=== PATIENT | male | born 1945 | race Caucasian/White ===

== ENCOUNTER → 2016-06-13 | Outpatient (CLI) | payer MEDICARE ==
[~2016-06-13] MED LIST: ASPIR-LOW81 MG PO; BETIMOL5 ML OS; COREG 25MG TAB25 MG PO; COUMADIN2.5 MG PO; COUMADIN5 MG PO; HYDRALAZINE HCL50 MG PO; IMDUR ER TAB 3030 MG PO; LANTUS100 UNIT/1 SQ; LASIX40 MG PO; LASIX80 MG PO; LEVOTHYROXINE100 MCG PO; LIPITOR TAB 2020 MG PO; NITROGLYCERIN0.4 MG SL; NORVASC 5 MG TAB5 MG PO; RENAL CAPS SOFTG1 MG PO; SPIRONOLACTONE25 MG PO; VALSARTAN40 MG PO
== END ==
LOC: LAB 12:20
DX: Z51.81 Encounter for therapeutic drug level monitoring (principal); Z86.73 Personal history of transient ischemic attack (TIA), and cerebral infarction without residual deficits; Z79.01 Long term (current) use of anticoagulants
CPT/HCPCS: 36415; 85610

== ENCOUNTER → 2016-07-12 | Outpatient (CLI) | payer MEDICARE | LOC: LAB 09:44 | DX: Z51.81 Encounter for therapeutic drug level monitoring (principal); Z86.73 Personal history of transient ischemic attack (TIA), and cerebral infarction without residual deficits; Z79.01 Long term (current) use of anticoagulants | CPT/HCPCS: 36415; 85610 ==

== ENCOUNTER → 2016-08-30 | Outpatient (CLI) | payer MEDICARE | LOC: LAB 10:38 | DX: Z51.81 Encounter for therapeutic drug level monitoring (principal); Z86.73 Personal history of transient ischemic attack (TIA), and cerebral infarction without residual deficits; Z79.01 Long term (current) use of anticoagulants | CPT/HCPCS: 36415; 85610 ==

== ENCOUNTER → 2016-09-08 | Outpatient (CLI) | payer MEDICARE | LOC: LAB 12:34 | DX: Z51.81 Encounter for therapeutic drug level monitoring (principal); Z86.73 Personal history of transient ischemic attack (TIA), and cerebral infarction without residual deficits; Z79.01 Long term (current) use of anticoagulants | CPT/HCPCS: 36415; 85610 ==

== ENCOUNTER 2020-03-29 13:00 | Inpatient (IN) | payer MEDICARE ==
[~2020-03-29] VITALS: Ht 177.8 cm; Wt 100.6 kg
[~2020-03-29 13:00] MED LIST changes: -BETIMOL5 ML OS; +CATAPRES 0.1MG0.1 MG PO; +COREG 12.5MG12.5 MG PO; +DORZOLAMIDE-TIM10 ML EYELF; +HYDRALAZINE HC100 MG PO; -HYDRALAZINE HCL50 MG PO; -IMDUR ER TAB 3030 MG PO; +IMDUR ER TAB 6060 MG PO; -LASIX80 MG PO; -LIPITOR TAB 2020 MG PO; +LIPITOR80 MG PO; +LOVENOX100 MG/1 M SQ; +MINIPRESS2 MG PO; -NITROGLYCERIN0.4 MG SL; +NITROSTAT0.3 MG SL; -NORVASC 5 MG TAB5 MG PO; +NORVASC10 MG PO; +NOVOLOG 10100 UNITS/ SC; +NOVOLOG 10100 UNITS/ SQ; +PLAVIX 75 MG TA75 MG PO; +RANEXA1000 MG PO; +TRAMADOL HCL50 MG PO; +TYLENOL 325MG325 MG PO; +VITAMIN D32000 UNI1 PO
[2020-03-29 14:42] LABS: HEMOGLOBIN 10.8 gm/dl (14.0-17.5); RED BLOOD COUNT 3.63 M/UL (4.20-5.50); WHITE BLOOD COUNT 10.5 K/UL (4.5-11.0)
[2020-03-29] MEDS ORDERED: WARFARIN SODIUM5 MG PO (19:16)
[2020-03-29] MEDS ORDERED: JANTOVEN2.5 MG PO (19:17)
[2020-03-29] MEDS ORDERED: COREG 12.5MG12.5 MG PO (19:18)
[2020-03-29] MEDS ORDERED: ACID REDUCER20 MG PO (19:20)
[2020-03-30 03:58] LABS: HEMOGLOBIN 9.4 gm/dl (14.0-17.5); WHITE BLOOD COUNT 8.7 K/UL (4.5-11.0)
[2020-03-30 04:00] LABS: RED BLOOD COUNT 3.12 M/UL (4.20-5.50)
[2020-04-01 02:35] LABS: HEMOGLOBIN 8.4 gm/dl (14.0-17.5); WHITE BLOOD COUNT 9.7 K/UL (4.5-11.0)
[2020-04-01 02:44] LABS: RED BLOOD COUNT 2.79 M/UL (4.20-5.50)
--- NOTE | 2020-04-01 13:28 | NUR ---
AT APPROX 1230 CALLS OUT HELP. CALLED OUT FOR HELP. BINDU AND KASIE ENTER ROOM AND CALL CODE. BRIANNA AND AAKASH INITIATE COMPRESSIONS. CODE TEAM ARRIVES, PATIENT IS HOOKED TO MD JAVY AT BEDSIDE CALLING OUT MEDICATION, RAVINDER RECORDING. AT 1235 PATIENT RECIEVING CPR. NO RYTHM ON THE MONITOR. AT 1239 CODE TEAM AT BEDSIDE. #1 EPI GIVEN IN IV IN THE LEFT AC AND FLUSHED, NO RYTHM ON THE MONITOR. AT 1240 ATROPINE GIVEN IN THE LEFT AC NO RYTHM ON THE MONITOR. DR BONILLA AVAILABLE TO INTUBATE, PRESENTLY BAGGING THE PATIENT. CPR CONTINUED, PER MD ORDER PAUSE CPR ANALYZING THE MONITOR THE PATIENTS HEART RYTHM IS PRESENTLY SINUS TACH. PATIENT IS AWAKE AND TALKING, EKG DONE AT 1245. PATIENT TO TRANSFER TO UNIT. ALERT AND ORIENTED, O2 AT 100% PER VENTI MASK.
--- NOTE | 2020-04-01 18:51 | NUR ---
PT STATED THAT PT HAS HAD HISTORY OF SEVERAL EPISDES OF EXTREME LETHERGY AND PERIODS OF "PASSING OUT" WHILE TAKING CLONIDINE AND WAS VERY CONCERNED WITH IT BEING ORDERED. DISCUSSED WITH DR SARAVIA, AND CLONIDINE WAS DC'D.
[2020-04-02 05:22] LABS: HEMOGLOBIN 8.1 gm/dl (14.0-17.5); RED BLOOD COUNT 2.78 M/UL (4.20-5.50); WHITE BLOOD COUNT 8.5 K/UL (4.5-11.0)
[2020-04-03 02:20] LABS: HEMOGLOBIN 8.7 gm/dl (14.0-17.5); RED BLOOD COUNT 2.88 M/UL (4.20-5.50); WHITE BLOOD COUNT 9.7 K/UL (4.5-11.0)
[2020-04-04 04:37] LABS: HEMOGLOBIN 8.7 gm/dl (14.0-17.5); RED BLOOD COUNT 2.87 M/UL (4.20-5.50); WHITE BLOOD COUNT 8.4 K/UL (4.5-11.0)
[2020-04-05 05:15] LABS: HEMOGLOBIN 8.5 gm/dl (14.0-17.5); RED BLOOD COUNT 2.83 M/UL (4.20-5.50); WHITE BLOOD COUNT 8.8 K/UL (4.5-11.0)
--- NOTE | 2020-04-05 14:08 | NUR ---
CONTACTED PHARMACY TO DISCUSS LOKELMA DOSAGE/FREQUENCY AND ADMINISTERING ON DIALYSIS DAYS; SPOKE TO NICOLE WHO CONTACTED DR PADILLA AND ORDER TO DC MED WAS OBTAINED
[2020-04-06 03:27] LABS: HEMOGLOBIN 7.4 gm/dl (14.0-17.5); WHITE BLOOD COUNT 8.1 K/UL (4.5-11.0)
[2020-04-06 03:50] LABS: RED BLOOD COUNT 2.48 M/UL (4.20-5.50)
[2020-04-06 08:09] LABS: HBSAG SCREEN Negative (Negative)
[2020-04-07 04:59] LABS: HEMOGLOBIN 8.9 gm/dl (14.0-17.5); WHITE BLOOD COUNT 8.4 K/UL (4.5-11.0)
[2020-04-09 08:53] LABS: HEMOGLOBIN 9.8 gm/dl (14.0-17.5)
[2020-04-09 08:55] LABS: RED BLOOD COUNT 3.31 M/UL (4.20-5.50); WHITE BLOOD COUNT 11.2 K/UL (4.5-11.0)
[2020-04-10 09:14] LABS: HBSAG SCREEN Negative (Negative); HEP A AB, IGM Negative (Negative); HEP B CORE AB, IGM Negative (Negative); HEP C VIRUS AB 0.1 (0.0-0.9)
[2020-04-11 05:03] LABS: HEMOGLOBIN 10.6 gm/dl (14.0-17.5); RED BLOOD COUNT 3.53 M/UL (4.20-5.50); WHITE BLOOD COUNT 13.3 K/UL (4.5-11.0)
[2020-04-13 05:41] LABS: HEMOGLOBIN 9.2 gm/dl (14.0-17.5); WHITE BLOOD COUNT 13.6 K/UL (4.5-11.0)
[2020-04-13 05:46] LABS: RED BLOOD COUNT 3.1 M/UL (4.20-5.50)
[2020-04-15 07:43] LABS: HEMOGLOBIN 9.8 gm/dl (14.0-17.5); RED BLOOD COUNT 3.32 M/UL (4.20-5.50)
[2020-04-15] MEDS ORDERED: CARVEDILOL3.125 MG PO (10:35)
[2020-04-15] MEDS ORDERED: LISINOPRIL10 MG PO (10:35)
[2020-04-15] MEDS ORDERED: SODIUM BICARBO650 M1 PO (10:35)
[2020-04-16 03:16] LABS: HEMOGLOBIN 9.2 gm/dl (14.0-17.5); RED BLOOD COUNT 3.14 M/UL (4.20-5.50); WHITE BLOOD COUNT 10.4 K/UL (4.5-11.0)
[2020-04-16] MEDS ORDERED: LOPRESSOR 25 MG25 MG PO (16:35)
[2020-04-16] MEDS ORDERED: METOPROLOL SUCC25 MG PO (17:35)
--- NOTE | 2020-04-16 18:59 | NUR ---
PATIENT ROOM AIR SAT IS 94%
== END 2020-04-16 19:15 | disposition home health service (06) | DRG 673 ==
LOC: ER1 13:00 → CCU 15:59 → CDU 15:59 → PROG CARE 15:59 → 2 EAST 04-01 13:21 → CCU 04-03 12:39 → PROG CARE 04-08 12:10
PROVIDERS: Family Medicine; Internal Medicine; Internal Medicine Infectious Disease; Internal Medicine Nephrology; Physician Assistant Medical; ADMIT Internal Medicine
PROC: 02HV33Z Insertion of Infusion Device into Superior Vena Cava, Percutaneous Approach (ICD-10-PCS; principal; 2020-04-04)
PROC: B548ZZA Ultrasonography of Superior Vena Cava, Guidance (ICD-10-PCS; 2020-04-04)
PROC: 5A1D70Z Performance of Urinary Filtration, Intermittent, Less than 6 Hours Per Day (ICD-10-PCS; 2020-04-04)
PROC: 5A1D70Z Performance of Urinary Filtration, Intermittent, Less than 6 Hours Per Day (ICD-10-PCS; 2020-04-05)
PROC: 5A1D70Z Performance of Urinary Filtration, Intermittent, Less than 6 Hours Per Day (ICD-10-PCS; 2020-04-06)
PROC: 30233N1 Transfusion of Nonautologous Red Blood Cells into Peripheral Vein, Percutaneous Approach (ICD-10-PCS; 2020-04-06)
PROC: 5A1D70Z Performance of Urinary Filtration, Intermittent, Less than 6 Hours Per Day (ICD-10-PCS; 2020-04-07)
PROC: 5A1D70Z Performance of Urinary Filtration, Intermittent, Less than 6 Hours Per Day (ICD-10-PCS; 2020-04-09)
PROC: 5A1D70Z Performance of Urinary Filtration, Intermittent, Less than 6 Hours Per Day (ICD-10-PCS; 2020-04-10)
PROC: B211YZZ Fluoroscopy of Multiple Coronary Arteries using Other Contrast (ICD-10-PCS; 2020-04-10)
PROC: 4A023N7 Measurement of Cardiac Sampling and Pressure, Left Heart, Percutaneous Approach (ICD-10-PCS; 2020-04-10)
PROC: B212YZZ Fluoroscopy of Single Coronary Artery Bypass Graft using Other Contrast (ICD-10-PCS; 2020-04-10)
PROC: 0JH63XZ Insertion of Tunneled Vascular Access Device into Chest Subcutaneous Tissue and Fascia, Percutaneous Approach (ICD-10-PCS; 2020-04-13)
PROC: 05HM33Z Insertion of Infusion Device into Right Internal Jugular Vein, Percutaneous Approach (ICD-10-PCS; 2020-04-13)
PROC: B513YZA Fluoroscopy of Right Jugular Veins using Other Contrast, Guidance (ICD-10-PCS; 2020-04-13)
PROC: 02PYX3Z Removal of Infusion Device from Great Vessel, External Approach (ICD-10-PCS; 2020-04-13)
PROC: 5A1D70Z Performance of Urinary Filtration, Intermittent, Less than 6 Hours Per Day (ICD-10-PCS; 2020-04-13)
PROC: 5A1D70Z Performance of Urinary Filtration, Intermittent, Less than 6 Hours Per Day (ICD-10-PCS; 2020-04-15)
DX: N17.0 Acute kidney failure with tubular necrosis (principal); I21.A1 Myocardial infarction type 2; I50.33 Acute on chronic diastolic (congestive) heart failure; J96.01 Acute respiratory failure with hypoxia; I46.9 Cardiac arrest, cause unspecified; I13.2 Hypertensive heart and chronic kidney disease with heart failure and with stage 5 chronic kidney disease, or end stage renal disease; E87.1 Hypo-osmolality and hyponatremia; I47.2 Ventricular tachycardia; N18.6 End stage renal disease; N18.4 Chronic kidney disease, stage 4 (severe); E11.22 Type 2 diabetes mellitus with diabetic chronic kidney disease; Z20.822 Contact with and (suspected) exposure to COVID-19; R79.1 Abnormal coagulation profile; J44.9 Chronic obstructive pulmonary disease, unspecified; I73.9 Peripheral vascular disease, unspecified; I08.1 Rheumatic disorders of both mitral and tricuspid valves; I25.10 Atherosclerotic heart disease of native coronary artery without angina pectoris; E03.9 Hypothyroidism, unspecified; E87.5 Hyperkalemia; I49.5 Sick sinus syndrome; D50.9 Iron deficiency anemia, unspecified; I27.20 Pulmonary hypertension, unspecified; E87.70 Fluid overload, unspecified; I48.0 Paroxysmal atrial fibrillation; C44.209 Unspecified malignant neoplasm of skin of left ear and external auricular canal; Z95.1 Presence of aortocoronary bypass graft; Z79.01 Long term (current) use of anticoagulants; Z79.4 Long term (current) use of insulin; Z86.73 Personal history of transient ischemic attack (TIA), and cerebral infarction without residual deficits; Z79.899 Other long term (current) drug therapy; Z87.891 Personal history of nicotine dependence
CPT/HCPCS: ECHO; 36415; 36430; 36600; 71045; 77001; 80048; 80053; 80074; 80202; 82550; 82553; 82803; 82962; 83036; 83540; 83550; 83735; 83874; 83880; 84100; 84484; 85025; 85027; 85379; 85610; 85730; 86140; 86850; 86900; 86901; 86920; 87340; 90935; 90937; 93005; 93306; 94660; 94760; 96365; 96366; 96372; 96375; 97116-GP-CQ; 97163; 97166; 99152; 99285; C1750; C1752; C1769; C1788; G0378; J0171; J0461; J1205; J1644; J1756; J1940; J2185; J2250; J2270; J2405; J2704; J3010; J3370; J3430; J7030; J7040; J7070; J7120; P9016; P9047; Q9965; U0002

== ENCOUNTER 2020-04-17 13:13 | Inpatient (IN) | payer MEDICARE ==
[~2020-04-17] VITALS: Ht 177.8 cm; Wt 90.7 kg
[~2020-04-17 13:13] MED LIST changes: +ACID REDUCER20 MG PO; +CARVEDILOL3.125 MG PO; +JANTOVEN2.5 MG PO; +LISINOPRIL10 MG PO; +LOPRESSOR 25 MG25 MG PO; +METOPROLOL SUCC25 MG PO; +SODIUM BICARBO650 M1 PO; +WARFARIN SODIUM5 MG PO
[2020-04-17 15:52] LABS: HEMOGLOBIN 8.2 gm/dl (14.0-17.5); WHITE BLOOD COUNT 11.3 K/UL (4.5-11.0)
[2020-04-17 15:58] LABS: RED BLOOD COUNT 2.77 M/UL (4.20-5.50)
[2020-04-17 23:36] LABS: HEMOGLOBIN 7.9 gm/dl (14.0-17.5); RED BLOOD COUNT 2.69 M/UL (4.20-5.50)
[2020-04-18 03:53] LABS: HEMOGLOBIN 9.1 gm/dl (14.0-17.5)
[2020-04-18 04:00] LABS: RED BLOOD COUNT 3.07 M/UL (4.20-5.50); WHITE BLOOD COUNT 17.6 K/UL (4.5-11.0)
[2020-04-18 21:21] LABS: HEMOGLOBIN 8.1 gm/dl (14.0-17.5); RED BLOOD COUNT 2.72 M/UL (4.20-5.50); WHITE BLOOD COUNT 18.1 K/UL (4.5-11.0)
[2020-04-18 21:54] LABS: BUN/CREATININE RATIO 17 (0-10)
== END 2020-04-19 04:00 | disposition expired | DRG 260 ==
LOC: CCU 14:19
PROVIDERS: Emergency Medicine; Internal Medicine; ADMIT Family Medicine
PROC: 5A12012 Performance of Cardiac Output, Single, Manual (ICD-10-PCS; principal; 2020-04-18)
PROC: 02H63JZ Insertion of Pacemaker Lead into Right Atrium, Percutaneous Approach (ICD-10-PCS; 2020-04-18)
PROC: 0BH17EZ Insertion of Endotracheal Airway into Trachea, Via Natural or Artificial Opening (ICD-10-PCS; 2020-04-18)
PROC: 03HY33Z Insertion of Infusion Device into Upper Artery, Percutaneous Approach (ICD-10-PCS; 2020-04-18)
PROC: 05HY33Z Insertion of Infusion Device into Upper Vein, Percutaneous Approach (ICD-10-PCS; 2020-04-18)
PROC: 5A1223Z Performance of Cardiac Pacing, Continuous (ICD-10-PCS; 2020-04-18)
DX: I47.2 Ventricular tachycardia (principal); I21.4 Non-ST elevation (NSTEMI) myocardial infarction; I63.81 Other cerebral infarction due to occlusion or stenosis of small artery; N18.6 End stage renal disease; J96.20 Acute and chronic respiratory failure, unspecified whether with hypoxia or hypercapnia; R65.21 Severe sepsis with septic shock; J69.0 Pneumonitis due to inhalation of food and vomit; A41.9 Sepsis, unspecified organism; J96.00 Acute respiratory failure, unspecified whether with hypoxia or hypercapnia; I50.32 Chronic diastolic (congestive) heart failure; I13.2 Hypertensive heart and chronic kidney disease with heart failure and with stage 5 chronic kidney disease, or end stage renal disease; E87.1 Hypo-osmolality and hyponatremia; Z20.822 Contact with and (suspected) exposure to COVID-19; R79.1 Abnormal coagulation profile; Z99.2 Dependence on renal dialysis; E03.9 Hypothyroidism, unspecified; C44.209 Unspecified malignant neoplasm of skin of left ear and external auricular canal; E11.22 Type 2 diabetes mellitus with diabetic chronic kidney disease; E11.51 Type 2 diabetes mellitus with diabetic peripheral angiopathy without gangrene; Z98.61 Coronary angioplasty status; I25.10 Atherosclerotic heart disease of native coronary artery without angina pectoris; I25.82 Chronic total occlusion of coronary artery; I25.2 Old myocardial infarction; D64.89 Other specified anemias; I34.0 Nonrheumatic mitral (valve) insufficiency; Z87.891 Personal history of nicotine dependence; I46.9 Cardiac arrest, cause unspecified; I49.5 Sick sinus syndrome; Z95.0 Presence of cardiac pacemaker; Z66 Do not resuscitate; I25.5 Ischemic cardiomyopathy; L89.152 Pressure ulcer of sacral region, stage 2
CPT/HCPCS: 31500; 33210; 36415; 36600; 71045; 80053; 81001; 82550; 82553; 82803; 82962; 83605; 83735; 83874; 84132; 84443; 84484; 85025; 85610; 87040; 87635; 92950; 93005; 94002; 94003; 94640; 94664; 94760; 94770; 99152; C9113; J0171; J0461; J0610; J0713; J1265; J1644; J2250; J2370; J2405; J3370; J7030; J7070